=== PATIENT | female | born 1995 | race Hispanic/Latino ===

== ENCOUNTER 2023-01-05 08:25 | Day surgery (SDC) | payer OTHER ==
[2023-01-05] MEDS ORDERED: Oxymetazoline HCl 0.05% (30 ML BOT) ONE ×2 (09:54→13:04)
[2023-01-05 11:02] LABS: BHCG - Serum Negative (NEGATIVE); Pregs Control Background? CLEAR/WHITE (CLR/WHITE); Pregs Control Bar Appear? YES (CONTROL BAR)
[2023-01-05] MEDS ORDERED: Bacitracin Zinc Ointment 30 gm TUBE ONE (13:04)
[2023-01-05] MEDS ORDERED: Lidocaine 1% (PF) 30 ML VIAL ONE (13:04)
[2023-01-05] MEDS ORDERED: EPINEPHrine 1 MG/ML AMP ONE (13:04)
[2023-01-05] MEDS ORDERED: fentaNYL PF 100 MCG/2 ML SYRINGE ONE ×2 (13:13→14:52)
[2023-01-05] MEDS ORDERED: Ondansetron PF 4 MG/2 ML Vial ONE (13:26)
[2023-01-05] MEDS ORDERED: PROPOFOL 200 MG/20 ML VIAL ONE (13:26)
[2023-01-05] MEDS ORDERED: Dexamethasone 20 MG/5 ML VIAL ONE (13:26)
[2023-01-05] MEDS ORDERED: Lidocaine 1% PF 5 ML VIAL ONE (13:26)
[2023-01-05] MEDS ORDERED: ePHEDrine 50 MG/ML VIAL ONE (13:26)
== END 2023-01-05 17:00 | disposition home or self-care (01) ==
LOC: SDC 08:25
PROVIDERS: ATTEND Specialist
PROC: 09SM0ZZ Reposition Nasal Septum, Open Approach (ICD-10-PCS; principal; 2023-01-05)
PROC: 09SL8ZZ Reposition Nasal Turbinate, Via Natural or Artificial Opening Endoscopic (ICD-10-PCS; principal; 2023-01-05)
PROC: 09TL8ZZ Resection of Nasal Turbinate, Via Natural or Artificial Opening Endoscopic (ICD-10-PCS; principal; 2023-01-05)
PROC: 0CJS8ZZ Inspection of Larynx, Via Natural or Artificial Opening Endoscopic (ICD-10-PCS; principal; 2023-01-05)
DX: J34.3 Hypertrophy of nasal turbinates (principal); J34.89 Other specified disorders of nose and nasal sinuses; J34.2 Deviated nasal septum
CPT/HCPCS: 84703; 85014; J0171; J1100; J2001; J2405; J2704; J3490